=== PATIENT | female | born 2005 | race African-American/Black ===

== ENCOUNTER 2024-10-30 06:27 | Emergency (ER) | payer OTHER ==
[~2024-10-30] VITALS: Ht 167.6 cm; Wt 71.7 kg
[2024-10-30] MEDS: DEXAMETHASONE SOD PHOS INJ 4 MG/ML SDV IM ONE (06:57)
[2024-10-30] MEDS: ALBUTEROL/IPRATROPIUM 3 ML NEB NEB ONE ×2 (06:57→07:34)
[2024-10-30] MEDS ORDERED: ALBUTEROL/IPRATROPIUM 3 ML NEB ONE (07:31)
[2024-10-30 07:49] VITALS: PULSE 75; RESP 16
[2024-10-30] MEDS ORDERED: PREDNISONE20 MG PO (08:12)
[2024-10-30] MEDS ORDERED: VENTOLIN HFA18 GM INH (08:13)
[2024-10-30 08:18] VITALS: PULSE 75; RESP 16; TEMP 97.6; O2SAT 100
== END 2024-10-30 08:22 | disposition home or self-care (01) ==
LOC: FSED 06:32
DX: R06.02 Shortness of breath (principal); J45.901 Unspecified asthma with (acute) exacerbation; R05.9 Cough, unspecified; L30.9 Dermatitis, unspecified
CPT/HCPCS: 96372; 99283; J1100